=== PATIENT | male | born 1965 | race Caucasian/White ===

== ENCOUNTER 2025-01-04 06:02 | Day surgery (SDC) | payer BC, SELFPAY ==
[2025-01-04] VITALS (11 sets, daily range): BP systolic 128–150; BP diastolic 73–85; BMI 31.9
[2025-01-04] MEDS: NSS 290 ML IV (06:57)
--- NOTE | 2025-01-04 07:59 | ITS.CL.CATH ---
Machine Splitter - Catheterization
Cardiac Catheterization
Procedure Report:
LEFT HEART CATHETERIZATION
Date of Procedure: January 04, 2025
Procedures performed:
1: Left ventricular hemodynamic assessment
2: Coronary angiography
Primary Care Physician: Dr. Morales Rendon
Primary Laborer Carpentry Dock: Dr. Villa Wong
INDICATION: The patient is a 59-year-old man with a past medical history of a nonischemic cardiomyopathy who is referred for recurrent symptoms with an abnormal nuclear perfusion scan.
ACCESS: The patient was prepped and draped in usual sterile fashion. A 6 Yoruba sheath was placed in the right radial artery using the Seldinger over the wire technique.
HEMODYNAMIC FINDINGS (mmHg):
LV(s/d,EDP): 102/11, 13
Ao(s/d,m): 102/69, 85
ANGIOGRAPHIC FINDINGS:
Single-plane Left Ventriculography in [place] Projection: Not done
Coronary Angiography:
Dominance: Right
Left Main: Normal
Left Anterior Descending: The left anterior descending artery is a medium caliber vessel that gives rise to 1 major diagonal branch. These vessels are widely patent with no focal disease and normal flow.
Ramus intermedius: There is a small to medium caliber ramus intermedius branch present which is widely patent with no disease.
Left Circumflex: The left circumflex is a medium caliber vessel that gives rise to 3 large obtuse marginal branches that are widely patent and appear angiographically normal with normal flow.
Right Coronary: The right coronary artery is a medium caliber dominant vessel that has a very proximal tortuous course but is otherwise angiographically normal without focal disease in the AV groove or distally. The distal vessel gives rise to a
small caliber posterior descending artery and very small PLV branch system. These vessels are widely patent with no focal disease and normal flow.
Fluoroscopy Time (min): 3.5
Radiation Dose (mGy): 320
DAP (Gy.cm2): 22
Closure device: None. A TR band was applied for hemostasis at the right wrist.
Complications: None.
ASSESSMENT:
1: Normal coronary arteries. This remains a nonischemic cardiomyopathy.
2: Well compensated filling pressures
CONCLUSIONS and RECOMMENDATIONS:
1: Continue medical therapy for a nonischemic cardiomyopathy with clinical follow-up as scheduled.
Keyur Peña M.D.
Copy to: Dr. Morales Rendon
== END 2025-01-04 10:45 | disposition home or self-care (01) ==
LOC: CATH 06:02
PROVIDERS: ATTENDING PHYSICIAN Internal Medicine Interventional Cardiology; FAMILY PHYSICIAN Family Medicine; OTHER PHYSICIAN Internal Medicine Cardiovascular Disease
DX: I42.8 Other cardiomyopathies (principal); I44.7 Left bundle-branch block, unspecified; Z95.810 Presence of automatic (implantable) cardiac defibrillator; Z79.82 Long term (current) use of aspirin
CPT/HCPCS: 93458; C1894; Q9967

== ENCOUNTER 2025-10-24 11:27 | Day surgery (SDC) | payer BC, SELFPAY ==
[2025-10-24 07:34] VITALS: BMI 32.5
--- NOTE | 2025-10-24 11:05 | W.ICD.CONTRA ---
Post ICD/DRUM DYEING MACHINE OPERATOR-D
-
History of NH?: No
LV Function
Left ventricular function study result?: Ejection Fraction </= 35%
ACEI/ARB/ARNI
Patient already on ACEI/ARB/ARNI: Yes
Beta-Taylor
Patient already on Beta Taylor: Yes
[2025-10-24 11:57] VITALS: BMI 30.9
[2025-10-24 12:08] VITALS: BP 144/73
--- NOTE | 2025-10-24 14:28 | ITS.CL.ICD ---
Category Planner - ICD
Implantable Cardioverter Defibrillator
Procedure Report:
ICD GENERATOR CHANGE
Date of Procedure: October 24, 2025
Primary Care Physician: Dr. Morales Mchugh
Primary Ductfixing Plumber: Dr. Villa Wong
Procedures:
1. Removal of biventricular pacemaker defibrillator generator at [facility]
2. Implant of new biventricular pacemaker defibrillator generator
INDICATION FOR PROCEDURE:
1. ICD at Elective Replacement Indicies
2. Current CHF Class 1 and patient is on guideline directed medical therapy at maximal tolerated dose for greater 3 months
3. Diagnosis of CHF initially made over 9 months ago]
4. Life expectancy is greater than one year
5. Primary prevention at initial implant
6. Primary prevention at this generator change
7. Explanted device has delivered appropriate therapy: No
Indication/History: The patient is a 59-year-old man with past medical history significant for a nonischemic cardiomyopathy who presents for battery generator change due to battery at [facility] on his biventricular pacemaker defibrillator. All lead data
is stable. He is not pacemaker dependent. The device has not delivered therapy.
Antibiotic: Ancef 2 g IV
Sedation/anesthesia: Conscious sedation per anesthesia staff.
Description of Procedure: 'Time out' was called and confirmed. The patient was prepped and draped in sterile fashion. Lidocaine with epinephrine was used for local anesthesia. An incision was made along the previous incision and the device and
leads were carefully dissected from the pocket. Hemostasis was obtained with electrocautery. The leads were from the device header and tested using an external analyzer. The pocket was liberally irrigated with antibiotic solution. Once
testing (see below) showed adequate and stable function, the leads were connected to the generator header and the leads and generator were placed within the pocket. The pocket was closed in the typical fashion.
EXPLANTED ICD GENERATOR: Biotronik [id number] DF-1 model: 408810 serial number: [id number]
IMPLANTED ICD GENERATOR: Biotronik Intica Alejandro 7HF-T DF-1 IS-1 ProMGA model: 150112 serial number: [id number]
Existing RA lead: Hotreaderronik Linox Smart SD 60/16 serial #[id number] Implanted 07/16/2011
Existing RV lead: Whyteboardtronic 4296�88 serial number [id number] implanted 07/16/2011
DEVICE TESTING:
Sensing: RA 1.8 mV, RV 6.9 mV, LV 5.8 mV
Capture: RA 0.4 V@0.4ms, RV 0.8 V@0.4ms, LV 2.0 V@0.4ms
Ohms: RA 715, RV 500, LV 910
FINAL PROGRAMMING
Adam Pacing: DDDR 60-130ppm
Tachy parameters:
VF: 222 bpm, ATP while charging, 40J Shock
VT: 200 bpm, ATP x 2, 30 J, 40 J x 7
Complications: None
CONCLUSIONS:
1. Successful explant of biventricular pacemaker defibrillator
2. Successful implant of biventricular pacemaker defibrillator
RECOMMENDATIONS:
1. Routine post-op care.
2. In-Office wound check within 7 days.
3. Office interrogation within 4 weeks.
Copy to: Dr. Morales Mchugh
[2025-10-24 15:20] VITALS: BP 126/67
[2025-10-24 15:34] VITALS: BP 105/65
[2025-10-24 15:49] VITALS: BP 121/66
[2025-10-24 16:01] VITALS: BP 122/65
== END 2025-10-24 16:10 | disposition home or self-care (01) ==
LOC: CATH 11:27
PROVIDERS: ATTENDING PHYSICIAN Internal Medicine Interventional Cardiology; FAMILY PHYSICIAN Family Medicine; OTHER PHYSICIAN Internal Medicine Cardiovascular Disease
DX: Z45.02 Encounter for adjustment and management of automatic implantable cardiac defibrillator (principal); I42.8 Other cardiomyopathies; I50.22 Chronic systolic (congestive) heart failure; Z79.82 Long term (current) use of aspirin; Z79.899 Other long term (current) drug therapy
CPT/HCPCS: 33264; 93005; C1882